=== PATIENT | male | born 1985 | race Caucasian/White ===

== ENCOUNTER 2017-07-15 08:03 | Emergency (ER) | payer MEDICAID, MEDICARE ==
[~2017-07-15] VITALS: Ht 182.9 cm; Wt 100.2 kg
[2017-07-15 08:03] VITALS: BP 137/83
[2017-07-15] MEDS ORDERED: ONDANSETRON ODT 4 MG PO ONE (08:30)
[2017-07-15] MEDS ORDERED: KETOROLAC 30 MG/1 ML IM ONE (08:30)
[2017-07-15] MEDS ORDERED: ONDANSETRON ODT 4 MG ONE (08:43)
[2017-07-15] MEDS ORDERED: KETOROLAC 30 MG/1 ML ONE (08:43)
== END 2017-07-15 10:00 | disposition home or self-care (01) ==
LOC: ED 09:07
DX: J15.9 Unspecified bacterial pneumonia (principal); B97.89 Other viral agents as the cause of diseases classified elsewhere; J06.9 Acute upper respiratory infection, unspecified; G43.909 Migraine, unspecified, not intractable, without status migrainosus; F17.210 Nicotine dependence, cigarettes, uncomplicated
CPT/HCPCS: 71046; 96372; 99284; J1885; Q0162

== ENCOUNTER 2018-11-13 10:07 | Emergency (ER) | payer MEDICARE ==
[~2018-11-13] VITALS: Ht 182.9 cm; Wt 98.3 kg
[2018-11-13 10:28] VITALS: BP 151/97
== END 2018-11-13 11:35 | disposition home or self-care (01) ==
LOC: ED 11:00
DX: S46.811A Strain of other muscles, fascia and tendons at shoulder and upper arm level, right arm, initial encounter (principal); S29.012A Strain of muscle and tendon of back wall of thorax, initial encounter; Z87.891 Personal history of nicotine dependence; X58.XXXA Exposure to other specified factors, initial encounter; Y93.89 Activity, other specified; Y92.89 Other specified places as the place of occurrence of the external cause; Y99.8 Other external cause status
CPT/HCPCS: 73030; 96372; 99283; J1885

== ENCOUNTER 2019-10-23 12:11 | Emergency (ER) | payer MEDICARE ==
[~2019-10-23] VITALS: Ht 185.4 cm; Wt 98.8 kg
[2019-10-23 12:17] VITALS: BP 132/87
[2019-10-23] MEDS ORDERED: KETOROLAC 30 MG/1 ML IM ONE (12:30)
[2019-10-23] MEDS ORDERED: ACETAMINOPHEN 500 MG TABLET PO ONE (12:30)
[2019-10-23] MEDS ORDERED: ACETAMINOPHEN 500 MG TABLET ONE (12:35)
[2019-10-23] MEDS ORDERED: KETOROLAC 30 MG/1 ML ONE (12:35)
== END 2019-10-23 13:43 | disposition home or self-care (01) ==
LOC: ED 13:19
DX: S20.212A Contusion of left front wall of thorax, initial encounter (principal); G43.909 Migraine, unspecified, not intractable, without status migrainosus; F17.200 Nicotine dependence, unspecified, uncomplicated; W01.198A Fall on same level from slipping, tripping and stumbling with subsequent striking against other object, initial encounter; Y93.89 Activity, other specified; Y92.009 Unspecified place in unspecified non-institutional (private) residence as the place of occurrence of the external cause; Y99.8 Other external cause status
CPT/HCPCS: 71101; 96372; 99283; J1885

== ENCOUNTER 2020-09-01 17:01 | Emergency (ER) | payer MEDICARE ==
[~2020-09-01] VITALS: Ht 185.4 cm; Wt 113.6 kg
[2020-09-01 18:48] LABS: MICROSCOPIC NOT IND
--- NOTE | 2020-09-01 19:04 | NUR ---
PT REPORTS EJACULATING BLOOD. STATES NO OTHER SYMPTOMS PRESENT. ATTACHED TO MONITORS, VSS. PT IN NAD.
[2020-09-01 19:05] VITALS: BP 151/88
--- NOTE | 2020-09-01 19:05 | NUR ---
RECEIVED REPORT FROM ANGELES BARNES.
== END 2020-09-01 19:24 | disposition home or self-care (01) ==
LOC: ED 17:31
DX: R36.1 Hematospermia (principal); G43.909 Migraine, unspecified, not intractable, without status migrainosus; F17.200 Nicotine dependence, unspecified, uncomplicated
CPT/HCPCS: 76870; 81003; 99284